=== PATIENT | female | born 1965 | race Hispanic/Latino ===

== ENCOUNTER 2023-04-04 13:24 | Emergency (ER) | payer MEDICARE ==
[2023-04-04 14:51] LABS: #Eosinphils 0.3 10x3/uL (0.0-0.5); #Monocytes 0.4 10x3/uL (0.0-1.1); #Neutrophils 3.4 10x3/uL (1.5-8.4); %Basophils 0.5 % (0.0-2.0); %Eosinophils 4.3 % (0.0-6.0); %Lymphocytes 29.6 % (18.0-47.0); %Monocytes 6.4 % (0.0-10.0); %Neutrophils 58.9 % (40.0-75.0); Hematocrit 34.5 % (34.9-44.5); Hemoglobin 11.8 g/dL (12.0-15.5); Mean Corpuscular HGB CONC 34.2 g/dL (32.0-36.0); Mean Corpuscular Hemoglobin 30.1 pg (27.0-33.0); Mean Platelet Volume 11.1 fl (7.4-10.4); Platelet Count 194 10x3/uL (150-450); RBC Distribution Width 14.9 % (11.5-14.5); Red Blood Cell (RBC) Count 3.92 10x6/uL (3.90-5.03); White Blood Cell (WBC) Count 5.8 10x3/uL (3.5-10.5)
[2023-04-04 14:59] LABS: ALT (SGPT) 10 U/L (8-55); AST (SGOT) 22 U/L (5-34); Alkaline Phosphatase 73 U/L (40-110); Anion Gap 12 mmol/L (10-20); BUN (Urea Nitrogen) 33 mg/dL (9.8-20.1); Bilirubin, Total 0.4 mg/dL (0.2-1.2); Calc. Creatinine Clearance 0 mL/min (70-130); Calcium 8.8 mg/dL (7.8-10.44); Carbon Dioxide 25 mmol/L (22-29); Chloride 110 mmol/L (98-107); Estimated GFR 52; Globulin 2.7 g/dL (2.4-3.5); Glucose 93 mg/dL (70-105); Potassium 4.3 mmol/L (3.5-5.1); Protein, Total 6.7 g/dL (6.0-8.3); Sodium 143 mmol/L (136-145)
[2023-04-04 15:02] LABS: Troponin I Less than 0.010 ng/mL (< 0.028)
[2023-04-04 16:18] LABS: Magnesium 2.1 mg/dL (1.6-2.6)
== END 2023-04-04 17:53 | disposition home or self-care (01) ==
LOC: CSHERS 13:24
DX: R56.9 Unspecified convulsions (principal); I25.2 Old myocardial infarction; E11.9 Type 2 diabetes mellitus without complications; E78.5 Hyperlipidemia, unspecified; M79.7 Fibromyalgia; I10 Essential (primary) hypertension; E66.9 Obesity, unspecified; Z55.6 Problems related to health literacy; Z86.73 Personal history of transient ischemic attack (TIA), and cerebral infarction without residual deficits; Z87.891 Personal history of nicotine dependence
CPT/HCPCS: 70450; 71045; 80053; 83735; 83880; 84484; 85025; 93005; 96360; 96361

== ENCOUNTER 2024-10-02 00:53 | Inpatient (IN) | payer OTHER, MEDICAID ==
[2024-10-02] MEDS ORDERED: Ondansetron PF 4 MG/2 ML Vial IVP PRN (01:08)
[2024-10-02] MEDS ORDERED: LevoFLOXacin 750 mg/D5W 750 MG in Premix 1 BAG IVPB SCH (01:15)
[2024-10-02 01:27] VITALS: BMI 35.2
[2024-10-02] MEDS ORDERED: Glucagon 1 MG/ML KIT IM PRN (01:27)
[2024-10-02] MEDS ORDERED: Dextrose 50% Abboject 50 ML SYRINGE SLOW IVP PRN (01:27)
[2024-10-02 02:18] LABS: Hematocrit 23.2 % (34.9-44.5); Hemoglobin 7.6 g/dL (12.0-15.5); Mean Corpuscular Hemoglobin 26.4 pg (27.0-33.0); Mean Corpuscular Volume 80.6 fL (81.6-98.3); Platelet Count 248 10x3/uL (150-450); Red Blood Cell (RBC) Count 2.88 10x6/uL (3.90-5.03); White Blood Cell (WBC) Count 27.52 10x3/uL (3.5-10.5)
[2024-10-02] MEDS: Azithromycin 500 MG in Sodium Chloride 0.9% 250 ML 250 ML IVPB SCH (02:27)
[2024-10-02] MEDS: Nitroglycerin 2% Ointment 1 INCH/1 GM Packet TOP PRN (02:29)
[2024-10-02] MEDS ORDERED: Pharmacy to Dose - VANCOMYCIN IVPB PRN (02:31)
[2024-10-02 02:38] LABS: Troponin I 0.012 ng/mL (< 0.028)
[2024-10-02 02:56] LABS: ALT (SGPT) 24 U/L (Less than 34); AST (SGOT) 146 U/L (11-34); Albumin 2.1 g/dL (3.1-4.5); Alkaline Phosphatase 401 U/L (40-110); Anion Gap 15 mmol/L (10-20); BUN (Urea Nitrogen) 19 mg/dL (9.8-20.1); Bilirubin, Total 0.6 mg/dL (0.3-1.2); Calc. Creatinine Clearance 111 mL/min (70-130); Calcium 8.0 mg/dL (7.8-10.44); Carbon Dioxide 14 mmol/L (22-29); Chloride 112 mmol/L (98-107); Globulin 3.7 g/dL (2.4-3.5); Glucose 90 mg/dL (70-105); Potassium 4.1 mmol/L (3.5-5.1); Sodium 137 mmol/L (136-145)
[2024-10-02 03:02] LABS: Burr Cells MODERATE= 6-15 cells (100X) (0-1/hpf); MDiff Complete? YES; Ovalocytes SLIGHT = 2-5 cells (100X) (0-1/hpf); Platelet Adequacy Comment Appears Adequate; Poikilocytosis MODERATE=16-30 cells (100X) (0-5/hpf); Polychromasia SLIGHT = 2-3 cells (100X) (0-2/hpf)
[2024-10-02] MEDS: VANCOMYCIN 2 GRAM/400 ML BAG 2 GM in Premix 1 BAG IVPB SCH (03:45)
[2024-10-02 06:22] LABS: Magnesium 1.4 mg/dL (1.6-2.6)
[2024-10-02] MEDS ORDERED: Vancomycin 1 GM in Premix 1 BAG IVPB SCH (09:00)
[2024-10-02] MEDS ORDERED: Famotidine 20 MG TAB PO SCH (09:00)
[2024-10-02] MEDS: levETIRAcetam 500 MG TAB PO SCH (09:23)
[2024-10-02] MEDS: Heparin 5,000 UNITS/ML VIAL SC SCH (09:24)
[2024-10-02] MEDS: Pantoprazole 40 MG DR.TAB PO SCH (09:24)
[2024-10-02] MEDS: PNEUMOC 20-VAL CONJ-DIP CRM/PF 0.5 ML SYRINGE IM ONE (10:57)
[2024-10-02] MEDS ORDERED: Iopamidol 300 61% 100 ML VIAL FS ONE (12:51)
[2024-10-02] MEDS: Acetaminophen 325 MG TAB PO PRN (13:52)
[2024-10-02] MEDS: Vancomycin 1 GM in Sodium Chloride 0.9% 250 ML 250 ML IVPB SCH (13:54)
[2024-10-02 15:52] LABS: Hematocrit 22.3 % (34.9-44.5); Hemoglobin 7.4 g/dL (12.0-15.5); Mean Corpuscular Hemoglobin 26.7 pg (27.0-33.0); Mean Corpuscular Volume 80.5 fL (81.6-98.3); Platelet Count 259 10x3/uL (150-450); Red Blood Cell (RBC) Count 2.77 10x6/uL (3.90-5.03); White Blood Cell (WBC) Count 27.81 10x3/uL (3.5-10.5)
[2024-10-02 16:04] LABS: Anisocytosis SLIGHT = 6-15 cells (100X) (0-5/hpf); MDiff Complete? YES; Platelet Adequacy Comment Appears Adequate
[2024-10-02 16:26] LABS: Campy jejuni + coli by PCR Negative (Negative); STEC Shiga Toxin 1+2 Negative (Negative); Salmonella spp. by PCR Negative (Negative); Shigella spp + EIEC by PCR Negative (Negative)
[2024-10-02 17:07] VITALS: BP 137/81
[2024-10-02] MEDS ORDERED: Vancomycin 1.5 GRAM/300 ML BAG 1.5 GM in Premix 1 BAG IVPB SCH (20:00)
[2024-10-03 00:57] VITALS: TEMP 100.5
== END 2024-10-03 01:50 | disposition short-term general hospital (02) | DRG 872 ==
LOC: CSHTELE 00:53 → OBSVTOIN 01:08
PROVIDERS: ADMIT Family Medicine; ATTEND Internal Medicine
DX: A41.9 Sepsis, unspecified organism (principal); I69.351 Hemiplegia and hemiparesis following cerebral infarction affecting right dominant side; E87.20 Acidosis, unspecified; E78.5 Hyperlipidemia, unspecified; I10 Essential (primary) hypertension; E66.9 Obesity, unspecified; R65.20 Severe sepsis without septic shock; K52.9 Noninfective gastroenteritis and colitis, unspecified; E11.40 Type 2 diabetes mellitus with diabetic neuropathy, unspecified; I25.10 Atherosclerotic heart disease of native coronary artery without angina pectoris; J98.8 Other specified respiratory disorders; R56.9 Unspecified convulsions; I25.2 Old myocardial infarction; Z79.899 Other long term (current) drug therapy
CPT/HCPCS: 36415; 36416; 71045; 74177; 76705; 80053; 83036; 83605; 83735; 84145; 84484; 85025; 87040; 87324; 87449; 87505; 93005; 93010; J0456; J0692; J1644; J3373; J3375; J7030; J7050; Q0162; Q9967